=== PATIENT | male | born 1985 | race Caucasian/White ===

== ENCOUNTER 2017-10-17 00:20 | Emergency (ER) | payer MEDICAID, OTHER ==
[~2017-10-17] VITALS: Ht 182.9 cm; Wt 82.5 kg
[2017-10-17 00:59] VITALS: Ht 182.9 cm; Wt 82.5 kg
[2017-10-17] MEDS ORDERED: DIPHTH/TET/ACEL PERTUSS (ADULT) 0.5 ML VIAL IM* ONE (05:00)
[2017-10-17] MEDS ORDERED: LIDOCAINE 1% (MDV) 20 ML INJ SC ONE (05:00)
--- NOTE | 2017-10-17 05:05 | ERD ---
ER Documentation Chief Complaint Chief Complaint Lt thumb and left third finger lac s/p opening a can HPI 32-year-old male presents here to emergency department for complaints of a left thumb laceration wound and left third finger laceration wound after touching an edge of open can while opening it today. Patient's complaint of pain sharp pain , 6/10 scale, as was upon touching the area. Patient's laceration when is still bleeding on the third finger but the thumb laceration wound has stopped. Patient does not have any joint involvement. Patient is able to move the joints without problems. Unknown last tetanus immunization. ROS All systems reviewed and are negative except as per history of present illness. Medications Home Meds Reported Medications [none] Unknown Strength No Conflict Check 10/17/17 Allergies Allergies: Coded Allergies: No Known Allergy (Unverified , 10/17/17) PMhx/Soc Last tetanus immunization Medical and Surgical Hx: pt denies Medical Hx, pt denies Surgical Hx History of Surgery: No Anesthesia Reaction: No Hx Neurological Disorder: No Hx Respiratory Disorders: No Hx Cardiac Disorders: No Hx Psychiatric Problems: No Hx Miscellaneous Medical Probl: No Hx Alcohol Use: No Hx Substance Use: No Hx Tobacco Use: Yes (3 CIGS/ DAY ) Smoking Status: Current every day smoker FmHx Family History: No coronary disease, No diabetes, No other Physical Exam Vitals Vital Signs Date Time Temp Pulse Resp B/P Pulse Ox O2 Delivery O2 Flow Rate FiO2 10/17/17 00:59 98.2 74 18 137/93 99 Physical Exam GENERAL: The patient is well developed and appropriate for usual state of health, in no apparent distress. CHEST: Clear to auscultation bilaterally. There are no rales, wheezes or rhonchi. HEART: Regular rate and rhythm. No murmurs, clicks, rubs or gallops. No S3 or S4. ABDOMEN: Soft, nontender and nondistended. Good bowel sounds. No rebound or guarding. No gross peritonitis. No gross organomegaly or masses. No Bowling sign or McBurney point tenderness. BACK: No midline or flank tenderness. EXTREMITIES: Equal pulses bilaterally. There is no peripheral clubbing, cyanosis or edema. No focal swelling or erythema. Full range of motion. Grossly neurovascularly intact. NEURO: Alert and oriented. Cranial nerves 2-12 intact. Motor strength in all 4 extremities with 5/5 strength. Sensation grossly intact. Normal speech and gait. SKIN: Noted 1.5 cm laceration wound noted in the palmar aspect of the left third finger, bleeding at this time, laceration wound on the left thumb noted to be 2 cm very superficial, well approximated and not bleeding. There is no apparent rash or petechia. The skin is warm and dry. HEMATOLOGIC AND LYMPHATIC: There is no evidence of excessive bruising or lymphedema. No gross cervical, axillary, or inguinal lymphadenopathy. Results 24 hrs Current Medications Medications (Trade) Dose Ordered Sig/Levar Route PRN Reason Start Time Stop Time Status Last Admin Dose Admin Diphtheria/ Tetanus/Acell Pertussis (Adacel) 0.5 ml ONCE ONCE IM* 10/17/17 05:00 10/17/17 05:01 DC 10/17/17 05:01 Lidocaine (Xylocaine 1% (Mdv) 20 ml) 2 ml ONCE ONCE SC 10/17/17 05:00 10/17/17 05:01 DC Tdap was given to prevent tetanus. Patient tolerated medication well. Procedures/MDM Procedure Note: After obtaining informed consent, the wound was irrigated with 250 ml of normal saline and cleaned with diluted betadine. Using aseptic technique, 3 ml of 1% lidocaine was injected on the subcutaneous tissue of the laceration wound for anesthetic. After the anesthetic, the wound was approximated using 4 interrupted sutures of 6-0 Prolene. After the procedure, the wound was well approximated. Patient tolerated procedure well. Bacitracin was applied on the area and a dry dressing. Medical Decision Making: Patient's pain is most likely consistent with the laceration on affected area which was repaired without any difficulty. There is no suspicion for neurovascular compromise. Patient has intact sensation and circulation of the affected extremity. There is low suspicion for septic arthritis. Patient does not have any fever. Radiology exams not indicated at this time Disposition: Home. Patient is given prescription for ibuprofen for pain, Keflex to prevent infection. Patient was advised to elevate the affected area and apply ice on affected area. Patient was advised that if symptoms are worse, numbness, tingling, high fever, unable to move joint, worsening symptoms, to return to emergency department immediately. Otherwise, patient is advised to follow up with the primary care doctor or any clinic in 2 days for recheck, suture removal in 7-10 days. Disclaimer: Inadvertent spelling and grammatical errors are likely due to EHR/ dictation software use and do not reflect on the overall quality of patient care. Also, please note that the electronic time recorded on this note does not necessarily reflect the actual time of the patient encounter. Departure Diagnosis: Primary Impression: Hand laceration Encounter type: initial encounter Foreign body presence: without foreign body Laterality: left Qualified Code: S61.412A - Laceration of left hand without foreign body, initial encounter Condition: Stable Patient Instructions: Laceration, Hand Additional Instructions: Patient is given prescription for ibuprofen for pain, Keflex to prevent infection. Patient was advised to elevate the affected area and apply ice on affected area. Patient was advised that if symptoms are worse, numbness, tingling, high fever, unable to move joint, worsening symptoms, to return to emergency department immediately. Otherwise, patient is advised to follow up with the primary care doctor or any clinic in 2 days for recheck, suture removal in 7-10 days. PRISCILA JOYA NP Oct 17, 2017 05:05
[2017-10-17] MEDS ORDERED: CEPH-443 PO (05:30)
[2017-10-17] MEDS ORDERED: IBUP-1542 PO (05:30)
== END 2017-10-17 05:46 | disposition home or self-care (01) ==
LOC: FTE 00:20
DX: S61.412A Laceration without foreign body of left hand, initial encounter (principal); F17.210 Nicotine dependence, cigarettes, uncomplicated; S61.012A Laceration without foreign body of left thumb without damage to nail, initial encounter; W26.8XXA Contact with other sharp object(s), not elsewhere classified, initial encounter; Y92.9 Unspecified place or not applicable; Z23 Encounter for immunization
CPT/HCPCS: 12001; 90471; 90715; Z7502; Z7610

== ENCOUNTER 2017-10-19 16:04 | Emergency (ER) | END 2017-10-19 18:48 | disposition home or self-care (01) ==

== ENCOUNTER 2017-10-31 12:20 | Emergency (ER) | END 2017-10-31 13:22 | disposition home or self-care (01) ==